=== PATIENT | male | born 1955 | race Caucasian/White ===

== ENCOUNTER 2016-10-02 07:30 | Inpatient (IN) ==
[2016-11-20] MEDS ORDERED: ACETAMINOPHEN 500 MG TABLET PO ONE (06:00)
[2016-11-20] MEDS ORDERED: LIDOCAINE 1% (10mg/ml) 2mL INJ PF SDV ID ONE (06:00)
[2016-11-20] MEDS ORDERED: ONDANSETRON 4 MG/2 ML INJECTION IVP ONE (06:00)
[2016-11-20] MEDS ORDERED: NOZIN NASAL SWAB NAS ONE ×2 (06:00→14:25)
[2016-11-20] MEDS ORDERED: FAMOTIDINE PB 20 MG/50 ML BAG IV ONE (06:00)
[2016-11-20] MEDS ORDERED: CEFAZOLIN 1 G INJECTION IVP ONE (06:00)
[2016-11-20] MEDS ORDERED: DEXAMETHASONE 4 MG/ML INJECTION IVP ONE (06:00)
[2016-11-20] MEDS ORDERED: METOCLOPRAMIDE 10mg/2ml INJECTION IVP ONE (06:00)
[2016-11-20] MEDS ORDERED: VANCOMYCIN 1,000 MG INJECTION ONE (06:24)
--- OUTSIDE RECORDS SUMMARY | 2016-11-20 07:41 | External Medical Summary ---
:1955 Author Organization eClinicalWorks Care Team Providers Name Role Phone Jaspreet Brennan Provider Role Unavailable Allergies No Known Allergies Problems Problem Type Condition Code Onset Dates Condition Status Problem Atrial fibrillation 427.31 Active Medications No Known Medications Results No Known Results Summary Purpose eClinicalWorks Submission
--- OUTSIDE RECORDS SUMMARY | 2016-11-20 07:41 | External Medical Summary | Clinical Summary ---
:1955 Author Organization [facility] Address [address] [place] [address] Phone Care Team Providers Name Role Phone Unavailable Primary Care Provider Unavailable Source Comments Some departments are not documenting in the electronic medical record. If you do not see the information that you expected, contact Release of Information in the Health Information Management department at [phone] for further assistance in locating additional records.[facility] Allergies No Known Allergies Current Medications Prescription Sig. Disp. Refills Start Date End Date Status metoprolol XL (TOPROL XL) Take 1 Tab by 30 Tab 11 10/28/2013 Active 25 mg tablet mouth daily. rivaroxaban (XARELTO) 20 Take 1 Tab by 30 Tab 8 12/22/2013 Active mg tab tablet mouth daily with dinner. Start around 02/03/14 Active Problems Problem Noted Date S/P ablation of atrial fibrillation 04/09/2014 Atrial fibrillation (HCC) 03/08/2014 Chronic anticoagulation 03/07/2014 Last Assessment & Plan: He continues to take Xarelto for anticoagulation. He was educated on the importance of medication compliance. He was instructed to notify us of any bleeding. Paroxysmal atrial fibrillation (HCC) 10/28/2013 Overview: 2002 - Admitted to CICU with A-fib. Per chart, multiple beta blockers tried ( Sotalol) 2005 - Started treatment with pill in pocket Flecainide as needed 03/2008 - Frequency of arrhythmias decreased since losing weight. 03/2012 - Nuclear stress test: No ischemia 09/2013 - Echo: EF 60-65%. LA borderline dilated. Trace mitral regurgitation. 09/28/13 - Continue flecainide pill in the pocket. 10/28/13 - Consult to discuss ablation. PAF 11/25/13 CCTA - Unremarkable, Moderate left atrial enlargement with a left atrial volume of 194 ml, Large left atrial appendage with a windsock appearance. No thrombus visualized within the left atrial appendage. 01/20 xarelto started 03/08/14 A Fib ablation CTI AFL ablation. Atrial Tachycardia ablation from right atrial pulmonary vein. Discharged on flecainide, toprol and xarelto. 04/10/14: Post-ablation: Pt. is doing great. no recurrence of AF. Stop flecainide. Cont. xarelto. 05/18/14 EVR: NSR. Uneventful 06/20/14: 3 mos post - LAAA CCTA scheduled. 05/09/2015 per notes from [facility]-AF well controlled with flecainide "pill in the pocket". Continue Xarelto Last Assessment & Plan: Paroxysmal atrial fibrillation - Despite being on antiarrhythmic drug therapy with flecainde, Mr. Luna continues to have symptomatic episodes of atrial fibrillation, that are lifestyle limiting. On ce again, a detailed discussion ensued about atrial fibrillation and the treatment options at this time. Options discussed included: drug therapy for rate control, continuing antiarrhythmic drug therapy , which his atrial arrhythmias have been refractory to, and catheter based radiofrequency ablation. The details, benefits, and risks of the procedure were discussed and he verbalized understanding of th e procedure and the risks. All of his questions were answered to his satisfaction and the patient wishes to proceed with atrial fibrillation/left atrial antral isolation radiofrequency ablation. Printed pre-procedure instructions were given with directions on when to hold and restart medications and the nurse reviewed the instructions with the patient. He will be seen in the PAT clinic this afternoon as well. Hx of squamous cell carcinoma 10/28/2013 Family History Medical History Relation Name Comments Cancer Brother Stroke Father Cancer Mother Hypertension Sister Relation Name Status Comments Brother Father Mother Sister Alive Social History Tobacco Use Types Packs/Day Years Used Date Never Smoker Smokeless Tobacco: Never Used Alcohol Use Drinks/Week oz/Week Comments Yes 1-2 Cans of beer 0.0 Sex Assigned at Date Recorded Not on file Last Filed Vital Signs Vital Sign Reading Time Taken Blood Pressure 142/90 06/20/2014 9:28 AM CDT Pulse 66 06/20/2014 9:28 AM CDT Temperature 36.4 C (97.5 F) 03/09/2014 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
--- OUTSIDE RECORDS SUMMARY | 2016-11-20 07:41 | External Medical Summary ---
:1955 Author Organization eClinicalWorks Care Team Providers Name Role Phone Anu Nickicherri Provider Role Unavailable Allergies, Adverse Reactions, Alerts Substance Reaction Event Type N.K.D.A. Info Not Available Non Drug Allergy Problems Problem Type Condition Code Onset Dates Condition Status Assessment Atrial fibrillation 427.31 Active Problem Atrial fibrillation 427.31 Active Medications Medication Code System Code Instructions Start End Date Status Dosage Date Glucosamine NDC 10515-823 Orally qd 2 caps Chondroitin 31 Aspirin NDC 44481-896 81 MG Orally 1 tablet 4-68 Once a day Leg Cramp Relief NDC 30269-690 Orally prn 1 tab 10 Flecainide NDC 22783-530 100 MG Orally As 1 tablet Acetate 1-20 Needed Procedures Procedure Coding System Code Date Office Visit, Est Pt., Level 3 CPT-4 83144 Oct 25, 2014 Vital Signs Date/Time: Oct 25, 2014 BMI 30.91 Index Weight 254 lbs Height 76 in in Cardiac Monitoring Heart Rate 76 /min Oximetry 95 % Blood Pressure Diastolic 86 mm Hg Blood Pressure Systolic 130 mm Hg Results No Known Results Summary Purpose eClinicalWorks Submission
[2016-11-20] MEDS ORDERED: EPINEPHrine 0.25 MG, BUPIVACAINE 0.25% PF 30 ML, MORPHINE SULFATE 15 MG, KETOROLAC INJ ... OPSITE ONE (08:00)
[2016-11-20 08:11] VITALS: BMI 32.8
[2016-11-20] MEDS: LR 1,000 ML IV SCH ×3 (08:35→13:52)
--- NOTE | 2016-11-20 10:04 | Anesthesia Preoperative Report ---
Anesthesia Preoperative Record - Date and Time Date: 11/20/16 Preoperative Diagnosis: Lt TKA (RA) M17.12 Proposed Procedure: Left robotic total knee NPO Since Date: 11/20/16 NPO Since Time: 00:00 Allergies/Adverse Reactions: Allergies Allergy/AdvReac Type Severity Reaction Status Date / Time No Known Allergies Allergy Verified 11/20/16 08:43 - Vital Signs Vital Signs: Temperature 97.8 F 11/20/16 08:10 Pulse Rate 69 11/20/16 08:45 Respiratory Rate 19 11/20/16 08:10 Blood Pressure 152/85 H 11/20/16 08:10 Pulse Oximetry 95 11/20/16 08:10 Height and Weight: Height 1.91 m Weight 119.2 kg Body Mass Index 32.8 - Medications Inpatient Medications: Current Medications Lactated Ringer's (Lactated Ringers) 1,000 mls @ 50 mls/hr IV .Q20H MARYSE Last Admin: 11/20/16 08:35 Dose: 50 mls/hr Miscellaneous Medication (Tranexamic 1gm/Ns 100 Irr Mix) 100 ml IR O ONE Stop: 11/20/16 15:26 Sodium Chloride (Iv Flush) 10 - 80 ml IV PRN PRN PRN Reason: Flushing Home Medications: Home Medications Medication Instructions Recorded Confirmed Type Aleve (Naproxen) 220 mg capsule 220 mg PO DAILY PRN cap 09/10/16 11/20/16 History rivaroxaban 20 mg tablet 20 mg PO DAILY 30 Days #30 09/10/16 11/20/16 History Flecainide [Tambocor] 100 mg PO PRN PRN 11/20/16 11/20/16 History Is Patient on Beta Mookie?: No - Medical History Respiratory: Reports: Other (Hx of Pulmonary Emboli 2014) Cardiovascular: Reports: Arrhythmia (Afib with Ablation 2013) - Surgical History HEENT Surgeries: Reports: Oral Surgery (wisdom teeth extraction) Cardiac Surgeries/Treatments: Reports: Other (RF Cardiac Ablation 02-19) Musculoskeletal Surgery/Tx: Reports: Knee Arthroscopy (left knee) Anesthesia Reactions: None Hx Family Anesthesia Reaction: No History of Motion Sickness: No - Social History Smoking Status: Never smoker Hx Chewing Tobacco Use: No Second Hand Exposure: No Substance Use Type: does not use Alcohol Intake Frequency: does not drink - Pertinent Findings Laboratory: CBC and BMP 11/20/16 08:23 11/20/16 08:23 BMP 11/20/16 08:23 Sodium 146 H Potassium 3.9 Chloride 111 H Carbon Dioxide 25 BUN 17.0 Creatinine 1.1 Glucose 89 Calcium 9.4 Liver Function 11/20/16 Range/Units 08:23 Total Bilirubin 1.10 (0.20-1.30) MG/DL AST 38 (17-59) U/L ALT 60 (21-72) U/L Alkaline Phosphatase 67 (38-126) U/L Albumin 4.2 (3.5-5.0) G/DL EKG Rhythm: Normal Sinus Rhythm - Physical Exam Respiratory Exam: Present: lungs clear Cardiovascular Exam: Present: regular rate and rhythm - Airway Assessment Mallampati Score: II TMD: 3 Fingerbreadths Neck Extension: fair - ASA ASA Score: 3 - Plan Regional/Trunk Block: Spinal - Discussion Discussion: Discussed risks/options/alternatives of anesthesia and questions answered. Patient consents. Nursing pain assessment noted. Present for Discussion: spouse Attestation Statement: Prior to the delivery of any anesthetic medication, I examined the patient, developed the plan, obtained the patient's consent and discussed the risk and benefits of the procedure with the patient/guardian.
[2016-11-20] MEDS ORDERED: VANCOMYCIN 1,000 MG INJECTION IAR ONE (10:45)
[2016-11-20] MEDS ORDERED: MIDAZOLAM 2mg/2ml INJECTION ONE (10:45)
[2016-11-20] MEDS ORDERED: PROPOFOL 500 MG/50 ML VIAL IV ONE (10:51)
[2016-11-20] MEDS ORDERED: GLYCOPYRROLATE 0.4 MG/2 ML INJECTION ONE (11:21)
--- NOTE | 2016-11-20 11:25 | History & Physical Update ---
- History and Physical Update Date: 11/20/16 Update: I evaluated this patient and found no changes in the history and clinical exam findings. The treatment plan and recommendations are also unchanged from the previous documentation.
[2016-11-20] MEDS ORDERED: PROPOFOL 40 ML ONE ×2 (11:30→12:17)
[2016-11-20] MEDS ORDERED: PROPOFOL 20 ML ONE ×2 (11:30→12:53)
[2016-11-20] MEDS ORDERED: EPHEDRINE 50mg/ml INJECTION ONE (11:34)
[2016-11-20] MEDS ORDERED: ROPIVACAINE 0.5% (5mg/ml) 30ml INJ ONE (11:55)
[2016-11-20] MEDS ORDERED: HYDROMORPHONE 2 MG/ML INJECTION IVP PRN (12:37)
[2016-11-20] MEDS ORDERED: ONDANSETRON 4 MG/2 ML INJECTION IVP PRN ×2 (12:37→14:25)
--- NOTE | 2016-11-20 12:51 | Operative Note ---
- Procedure Side: left Preoperative Diagnosis: knee primary DJD Postoperative Diagnosis: Same as preoperative diagnosis. Operation: total knee arthroplasty Surgeon: Jose Suárez MD Electric Meter Tester: Juan Luis Complications: None. Regional/Trunk Block: Spinal Peripheral Nerve Block: Saphenous-Left Estimated Blood Loss: See Anesthesia Record. Fluids: Please see Anesthesia Record. Description of Procedure: Mr. Pham and his left knee were identified and marked in the preoperative holding area. He was brought back to the operating suite after a saphenous nerve block was placed in the preoperative holding area. Spinal anesthetic was administered and he was placed supine on the operating table. The left lower extremity was prepped and draped in my normal sterile fashion. Timeout was performed. The [employer] robot was used during the surgery. He a fixed varus deformity with a 12 flexion contracture. A standard anterior midline incision followed by medial parapatellar arthrotomy was performed. Anterior fat pad and meniscus were removed. The patella was resurfaced to a size 38. I then placed a tibial array to 2 poke hole incisions in the mid tibia just medial to the crest. The pins were placed bicortically. I then placed a second femoral array again using bicortical pins in the distal femoral metaphysis medially. Checkpoints were then placed both in the femur and the tibia. The bone was then registered with the [employer] robot. Osteophytes were removed and gaps were captured both 90 and 0 with correction. The knee was balanced by moving the femur anteriorly and proximally and placing 1 of external rotation. The [employer]cer[employer] robotic arm was then used to assist with the bone cuts. Posterior osteophytes and remaining meniscus were removed. Trial components were placed. We used a 6 femur and a 7 tibia with a 9 mm spacer. He tracked well and was well balanced throughout range of motion. The leg was exsanguinated and the tourniquet inflated to 250 mmHg. The bone was prepared for cementing and components were cemented into place and allowed to cure in extension. The tourniquet was let down and hemostasis obtained with electrocautery. The knee was ranged one more time to ensure good stability, balance and patellar tracking. 1 g of vancomycin powder was then placed into the knee joint. The capsulotomy was then closed with #1 Vicryl. I then left my journeyman operator assistant to close the subcutaneous tissue with 2-0 Vicryl. Running 4-0 Monocryl will be used in the subcuticular layer. Dermabond will be used on the skin followed by sterile dressing. After drapes are removed patient will be taken to recovery room under the care of anesthesia.
--- NOTE | 2016-11-20 13:45 | XRay Report ---
Indication: postoperative image PROCEDURE: XR knee LT 2V: Encounter: Initial Comparison: September 10, 2016 Findings: Postoperative changes of left total knee replacement are seen. There is expected postoperative subcutaneous gas. No evidence of hardware failure or acute fracture. No retained radiopaque surgical instruments or sponges. Overlying material causing artifact. Impression: New left total knee prosthesis without evidence of immediate complication. .
[2016-11-20] MEDS ORDERED: DiphenhydrAMINE 50 MG/ML INJECTION IVP PRN (14:25)
[2016-11-20] MEDS ORDERED: NS 1,000 ML IV SCH (14:25)
[2016-11-20] MEDS ORDERED: LORazepam 1 MG TABLET PO PRN (14:25)
[2016-11-20] MEDS ORDERED: DiphenhydrAMINE 25 MG CAPSULE PO PRN (14:25)
[2016-11-20] MEDS: NOZIN NASAL SWAB NAS SCH ×3 (14:42→22:09)
--- NOTE | 2016-11-20 15:05 | Anesthesia Postoperative Note ---
- Date and Time Date: 11/20/16 Time: 14:10 - Status Patient Participated in Evaluation: Patient Participated in Person Vital Signs: Temperature 97.6 F 11/20/16 14:27 Pulse Rate 82 11/20/16 14:42 Respiratory Rate 16 11/20/16 14:27 Blood Pressure 121/65 11/20/16 14:42 Pulse Oximetry 94 11/20/16 14:42 Respiratory Function: Airway Patent Cardiovascular Function: Regular Pulse EKG Rhythm: Normal Sinus Rhythm Mental Status: Alert and Oriented Pain Intensity: 0 Hydration: IV Infusing Complications During Recover: None Apparent - Follow-Up Instructions Instructions: Per Surgeon
[2016-11-20] MEDS ORDERED: SALINE FLUSH 10ml SYRINGE IV PRN (15:25)
[2016-11-20] MEDS ORDERED: TRANEXAMIC ACID 1gm/NS 100ml IRR MIX IR ONE (15:25)
[2016-11-20] MEDS: ACETAMINOPHEN 325 MG TABLET PO SCH ×2 (16:17→20:31)
[2016-11-20] MEDS: CEFAZOLIN 2 G in NS 100 ML IV SCH (18:17)
[2016-11-20] MEDS: DOCUSATE SODIUM 100 MG CAPSULE PO SCH (20:31)
[2016-11-20] MEDS ORDERED: SENNOSIDES 8.6 MG TABLET PO SCH (21:00)
[2016-11-20] MEDS: Oxycodone *IR* 5 MG TABLET PO PRN (23:08)
[2016-11-21] MEDS ORDERED: ENOXAPARIN 60 MG/0.6 ML INJECTION SQ SCH
[2016-11-21] MEDS: CEFAZOLIN 2 G in NS 100 ML IV SCH (02:18)
[2016-11-21] MEDS: NOZIN NASAL SWAB NAS SCH (05:28)
[2016-11-21] MEDS: Oxycodone *IR* 5 MG TABLET PO PRN (05:32)
[2016-11-21 07:54] VITALS: RESP 16
[2016-11-21] MEDS ORDERED: RIVAROXABAN 20 MG TABLET PO SCH (09:00)
[2016-11-21] MEDS ORDERED: POLYETHYL GLYCOL 3350 17gm PACKET PO SCH (09:00)
--- NOTE | 2016-11-21 09:15 | Orthopedic Progress Note ---
Date: Subjective/Severity of Illness: Otis is doing great. His pain is controlled. No CP, cough or SOA. He has been mobile with good tolerance. No wound drainage. VSS. Orthopedic Objective PO Vital signs: Temperature 96.0 F L 11/21/16 07:48 Pulse Rate 68 11/21/16 07:48 Respiratory Rate 16 11/21/16 07:48 Blood Pressure 130/82 11/21/16 07:48 Pulse Oximetry 98 11/21/16 07:48 Height and Weight: Height 6 ft 3 in Weight 262 lb 12.656 oz Body Mass Index 32.8 - Constitutional General Appearance: Present: alert, no acute distress - Respiratory Exam Present: non-labored - Cardiovascular Exam Present: pedal pulses intact - Extremities Exam Extremities: Present: pulses intact, normal capillary refill. Absent: calf tenderness - Surgical Site Incision: Mepilex dressing intact, no drainage - Integumentary Exam Present: pink, warm, dry - Neurological Exam Present: no deficits - Labs Result Diagrams: 11/21/16 04:05 11/21/16 04:05 Abnormal lab results 11/21/16 11/21/16 Range/Units 04:05 04:05 RBC 4.43 L (4.50-5.90) M/MM3 Hgb 12.8 L D (13.5-17.5) GM/DL Hct 38.2 L D (41-53) % Chloride 110 H (98-107) MEQ/L H & H 11/20/16 11/21/16 Range/Units 08:23 04:05 Hgb 15.4 12.8 L D (13.5-17.5) GM/DL Hct 45.5 38.2 L D (41-53) % Orthopedic Assessment and Plan (1) Primary osteoarthritis of left knee Status: Acute Assessment and Plan: Resume Xarelot for VTE prophylaxis. SCD's. PT/OT services to improve independent function. Discharge Planning per Case Management. - Anticoagulation Therapy Anticoagulation: Resume home anticoagulant (XARELTO.) Hospital Course Summary Disclaimer: The visit summary below is not to be considered part of the above Progress Note.
[2016-11-21] MEDS: ACETAMINOPHEN 325 MG TABLET PO SCH (10:01)
[2016-11-21] MEDS: DOCUSATE SODIUM 100 MG CAPSULE PO SCH (10:02)
[2016-11-21 12:19] VITALS: BP 136/76; PULSE 77; TEMP 97.7; O2SAT 99
--- NOTE | 2016-11-21 13:06 | Discharge Summary ---
Orthopedic Discharge Info Date of admission: 11/20/16 07:36 Primary care physician: Tito Bradley MD Attending Physician: Isiah Suárez MD Consults: 11/20/16 07:57 Consult to Anesthesiology [CONS] Routine Consulting Provider: JEANETTE Barber Reason For Exam: Preoperative Assessment 11/20/16 14:25 Case Management Consult [CONS] Routine Reason For Exam: Discharge Planning DME-Walker [CONS] Routine Height: 6 ft 3 in Weight: 262 lb 12.656 oz Comment: change dressing in 2 weeks Total Joint Outpatient Therapy [CONS] Routine Comment: change dressing in 2 weeks - Discharge Diagnosis (1) Primary osteoarthritis of left knee Status: Acute - Procedures Procedures: Left TKA - Laboratory Result Diagrams: 11/21/16 04:05 11/21/16 04:05 Laboratory: Abnormal lab results 11/21/16 11/21/16 Range/Units 04:05 04:05 RBC 4.43 L (4.50-5.90) M/MM3 Hgb 12.8 L D (13.5-17.5) GM/DL Hct 38.2 L D (41-53) % Chloride 110 H (98-107) MEQ/L H & H 11/20/16 11/21/16 Range/Units 08:23 04:05 Hgb 15.4 12.8 L D (13.5-17.5) GM/DL Hct 45.5 38.2 L D (41-53) % Orthopedic Discharge HPI - HPI Comments This patient was admitted for elective surgical tx of end stage degenerative joint disease that failed to respond to conservative treatment. Further details of this is found in the admission H&P. Orthopedic Hospital Course Hospital course: 11/21/16 13:04 After appropriate preoperative clearance and signing of operative consent, the patient was given IV antibiotics, according to orthopedic protocol. The patient was taken to the operating room and underwent elective joint arthroplasty. Following surgery, antibiotics were discontinued less than 24 hours according to joint protocol. Appropriate anticoagulants were initiated and SCDs added for DVT prevention. The dressing was clean, dry, and intact. Pain control was obtained via multimodal approach. Bowel motivation addressed with scheduled and PRN medications. Early mobilization was initiated through PT services. Discharge arrangements made by a collaborative effort between the patient and Case Management. Follow-up is scheduled in 2-3 weeks. Discharge instructions given by orthopedic providers and nursing staff at discharge. Discharge condition was good. Ongoing care required?: No - Postoperative Anemia patient received IVF, labs monitored daily, no intervention required, HGB drop- acceptable Discharge Plan - Med Rec/Dispo Referrals/Follow Up: Isiah Suárez MD [Physician] - 12/15/16 1:15 pm Additional Instructions: [facility] 11[facility]24[facility]2016 AT 10:45AM FOR PHYSICAL THERAPY EVAL. PHONE [phone] Prescriptions: New Oxycodone *Ir* [Roxicodone *Ir*] 5 - 15 mg PO Q3H PRN #60 tab PRN Reason: Breakthrough Pain Acetaminophen [Tylenol] 650 mg PO QID #100 tab Continue Flecainide [Tambocor] 100 mg PO PRN PRN PRN Reason: palpatations Aleve (Naproxen) 220 mg capsule 220 mg PO DAILY PRN cap PRN Reason: Pain rivaroxaban 20 mg tablet 20 mg PO DAILY 30 Days #30 Discontinued enoxaparin 60 mg/0.6 mL subcutaneous syringe 60 mg SQ DAILY #4 each - Disposition 01 Discharged Home, Self-Care
[2016-11-21] MEDS ORDERED: SENNOSIDES 8.6 MG TABLET PO PRN (13:22)
[2016-11-22] MEDS ORDERED: BISACODYL 10 MG SUPPOSITORY RECTALLY SCH (20:00)
== END 2016-11-21 14:42 | disposition home or self-care (01) | DRG 470 ==
LOC: SRG 11-20 07:36
PROVIDERS: ADMIT Orthopaedic Surgery; ATTEND Orthopaedic Surgery